=== PATIENT | male | born 1965 | race Caucasian/White ===

== ENCOUNTER 2022-05-23 13:36 | Emergency (ER) | payer OTHER ==
[2022-05-23] MEDS ORDERED: predniSONE 20 MG TAB ONE (15:43)
[2022-05-23] MEDS ORDERED: diphenhydrAMINE 25 MG CAP ONE (15:43)
[2022-05-23 18:42] LABS: Syphilis Antibody Nonreactive (Nonreactive); Syphilis Antibody Index 0.07 S/CO (<1.00 Non-Reactive)
== END 2022-05-23 15:47 ==
LOC: EEVIPCON 13:36 → ERS 13:36
DX: R21 Rash and other nonspecific skin eruption (principal)
CPT/HCPCS: 36415; 86780; 99283; J7512